=== PATIENT | female | born 1995 | race Caucasian/White ===

== ENCOUNTER 2022-04-10 21:18 | Emergency (ER) | payer BC ==
[2022-04-10] MEDS ORDERED: MEDROL DOSEPAK 24 MG PO ×2 (22:57→23:07)
== END 2022-04-10 23:10 | disposition home or self-care (01) ==
LOC: ER1 21:18
DX: T63.441A Toxic effect of venom of bees, accidental (unintentional), initial encounter (principal); F17.210 Nicotine dependence, cigarettes, uncomplicated
CPT/HCPCS: 99282